=== PATIENT | female | born 1995 | race American Indian/Alaskan Native ===

== ENCOUNTER 2016-06-01 14:01 | Observation (INO) | payer SELFPAY ==
[2016-06-01 14:04] VITALS: TEMP 98.4; BMI 24.0
--- NOTE | 2016-06-01 14:42 | ED PDOC ---
HPI: Psych/Substance Abuse Time Seen by Provider: 06/01/16 14:18 Chief Complaint (Nursing): Psychiatric Evaluation Chief Complaint (Provider): Psychiatric Evaluation History Per: Patient History/Exam Limitations: no limitations Onset/Duration Of Symptoms: Hrs (prior to arrival) Current Symptoms Are (Timing): Still Present Additional Complaint(s): 20 y/o female with a past medical history of bipolar, depression, and schizophrenia who presents to the emergency department via EMS after screaming and acting erratically in [place] stating she wants to kill herself prior to arrival. Upon arrival, patient is not cooperative, agitated, crying and screaming. Denies medical complaints. Past Medical History Reviewed: Historical Data, Nursing Documentation, Vital Signs Vital Signs: Last Vital Signs Temp 98.4 F 06/01/16 14:03 Pulse 61 06/01/16 14:03 Resp 16 06/01/16 14:03 BP 120/68 06/01/16 14:03 Pulse Ox 99 06/01/16 14:03 - Medical History PMH: Bipolar Disorder, Depression, Schizophrenia - Surgical History Surgical History: No Surg Hx - Family History Family History: States: Unknown Family Hx - Allergies Allergies/Adverse Reactions: Allergies Allergy/AdvReac Type Severity Reaction Status Date / Time No Known Allergies Allergy Verified 06/01/16 14:04 Review of Systems ROS Statement: Except As Marked, All Systems Reviewed And Found Negative Physical Exam - Reviewed Nursing Documentation Reviewed: Yes Vital Signs Reviewed: Yes - Physical Exam Appears: Positive for: Non-toxic, No Acute Distress Head Exam: Positive for: ATRAUMATIC, NORMOCEPHALIC Skin: Positive for: Normal Color, Warm, Dry Eye Exam: Positive for: Normal appearance. Negative for: Conjunctival injection ENT: Positive for: Normal ENT Inspection. Negative for: Pharyngeal Erythema Neck: Positive for: Normal, Supple Cardiovascular/Chest: Positive for: Regular Rate, Rhythm. Negative for: Murmur Respiratory: Positive for: Normal Breath Sounds. Negative for: Accessory Muscle Use, Respiratory Distress Gastrointestinal/Abdominal: Positive for: Normal Exam, Soft. Negative for: Tenderness Extremity: Positive for: Normal ROM. Negative for: Pedal Edema Neurologic/Psych: Positive for: Alert, Oriented, Mood/Affect (Appears psychotic) - Laboratory Results Result Diagrams: 06/01/16 14:59 06/01/16 14:59 - ECG O2 Sat by Pulse Oximetry: 100 (RA) Pulse Ox Interpretation: Normal Medical Decision Making Medical Decision Making: Time: 14:18 Initial impression: Differential includes acute psychosis Initial plan: --Alcohol Serum Stat --Basic Metabolic Panel --Drug Screen, Urine --ED Urine (POC) --ED Urine Dipstick --CBC w/ differential --Ativan 2mg IM --Haldol 5mg IM --Face to Face contact. Patient is restraint: Violent or harm to self/other --1:1 Obs Scribe Attestation: Documented by Elba Quick, acting as a scribe for Haseeb Wilks MD. Provider Scribe Attestation: All medical record entries made by the Scribe were at my direction and personally dictated by me. I have reviewed the chart and agree that the record accurately reflects my personal performance of the history, physical exam, medical decision making, and the department course for this patient. I have also personally directed, reviewed, and agree with the discharge instructions and disposition. Disposition - Clinical Impression Clinical Impression: Psychosis - Patient ED Disposition Is Patient to be Admitted: Transfer of Care - Disposition Disposition: Transfer of Care Disposition Time: 15:00 Condition: FAIR Patient Signed Over To: Moshe Durbin Handoff Comments: pending labs, medical clearance and crisis eval
--- NOTE | 2016-06-01 14:49 | ED PDOC ---
- Laboratory Results Result Diagrams: 06/01/16 14:59 06/01/16 14:59 - ECG O2 Sat by Pulse Oximetry: 100 (RA) Pulse Ox Interpretation: Normal Medical Decision Making Medical Decision Making: Time: 15:00 Initial impression: Differential includes acute psychosis Initial plan: --Transfer of care from Dr. Wilks to de. --Patient pending crisis evaluation 2150 Pt. is awake, alert; pt. A&O x 3 walking with steady gait. Will d/c home. Scribe Attestation: Documented by Elba Quick, acting as a scribe for Moshe Durbin MD. Provider Scribe Attestation: All medical record entries made by the Scribe were at my direction and personally dictated by me. I have reviewed the chart and agree that the record accurately reflects my personal performance of the history, physical exam, medical decision making, and the department course for this patient. I have also personally directed, reviewed, and agree with the discharge instructions and disposition. Disposition - Clinical Impression Clinical Impression: Psychoses, Schizoaffective disorder, Bipolar 1 disorder - POA Present On Arrival: None - Disposition Disposition: Routine/Home Disposition Time: 21:50 Condition: STABLE
[2016-06-01 15:06] LABS: EOS # 0.3 K/uL (0.0-0.7); HEMATOCRIT 36.9 % (34.0-47.0); LYMPH # 3.9 K/uL (1.0-4.3); MEAN CELL VOLUME 83.1 fl (81.0-99.0); MEAN CORPUSCULAR HEMOGLOBIN 26.9 pg (27.0-31.0); MEAN CORPUSCULAR HGB CONC 32.4 g/dL (33.0-37.0); MEAN PLATELET VOLUME 8.2 fl (7.2-11.7); MONO # 1.4 K/uL (0.0-0.8); NEUT # 1.3 K/uL (1.8-7.0); PLATELET COUNT 233 K/uL (130-400); RED CELL DISTRIBUTION WIDTH 14.2 % (11.5-14.5); WHITE BLOOD COUNT 6.9 K/uL (4.8-10.8)
[2016-06-01 15:13] LABS: ALCOHOL SERUM < 10 mg/dl (0-10); BLOOD UREA NITROGEN 10 mg/dl (7-17); CALCIUM 9.9 mg/dL (8.4-10.2); CARBON DIOXIDE 21 mmol/L (22-30); CHLORIDE 107 mmol/L (98-107); GFR AFRICAN-AMERICAN > 60; GLUCOSE,RANDOM 116 mg/dL (65-105); POTASSIUM 3.7 MMOL/L (3.6-5.0); SODIUM 143 mmol/l (132-148)
[2016-06-01 15:48] LABS: EOSINOPHIL 3 % (0-7); NEUTROPHIL 37 % (42-75); REACTIVE LYMPHOCYTES 6 % (0-0); TOTAL CELLS COUNTED 100
[2016-06-01 15:57] LABS: BASO % 0.3 % (0.0-2.0); EOS % 3.7 % (0.0-4.0)
[2016-06-01 19:47] VITALS: O2SAT 100
[2016-06-01 21:29] VITALS: BP 99/56; PULSE 58; RESP 16
== END 2016-06-01 21:58 | disposition home or self-care (01) ==
LOC: H.ER 14:01 → SUPCPDRO 14:01 → H.EROBSV 14:40
PROVIDERS: ADMIT Emergency Medicine; ATTEND Emergency Medicine
DX: F25.9 Schizoaffective disorder, unspecified (principal); F31.9 Bipolar disorder, unspecified; Z86.59 Personal history of other mental and behavioral disorders; Z00.8 Encounter for other general examination
CPT/HCPCS: 80048; 85025; 96372; 99282; G0378; G0480; J1630; J2060